=== PATIENT | female | born 1950 | race Caucasian/White ===

== ENCOUNTER 2016-10-10 10:16 | Emergency (ER) | payer BC ==
[2016-10-10] MEDS ORDERED: NORMAL SALINE 1000 ML 1,000 ML IV ONE (10:38)
--- NOTE | 2016-10-10 10:42 | ER Document Report ---
ED Medical Screen (RME) - General Chief Complaint: Nausea/Vomiting Stated Complaint: FLU LIKE SYMPTOMS Time Seen by Provider: 10/10/16 10:37 Mode of Arrival: Ambulatory Information source: Patient TRAVEL OUTSIDE OF THE [place] IN LAST 30 DAYS: No - HPI Onset: Other - 2 DAYS Onset/Duration: Sudden Quality of pain: Achy Associated Symptoms: Chills, Fever, Headache - INTERMITTENT, Nausea, Sweating, Vomiting. denies: Cough (productive), Cough (nonproductive) Exacerbated by: Denies Relieved by: Denies Similar symptoms previously: Yes - NOT RECENT Recently seen / treated by doctor: No - Related Data Smoking: Non-smoker Frequency of alcohol use: None Drug Abuse: None Allergies/Adverse Reactions: codeine [Codeine] Allergy (Verified 10/10/16 10:25) head ache, vomitting, rash niacin [From Niaspan] Allergy (Verified 10/10/16 10:25) feels like on fire nitroglycerin [Nitroglycerin] Adverse Reaction (Verified 10/10/16 10:25) headache Past Medical History - Past Medical History Cardiac Medical History: Reports: Hx Hypertension Denies: Hx Coronary Artery Disease, Hx Heart Attack Pulmonary Medical History: Reports: Hx Pneumonia - yearly, Last 2011 Denies: Hx Asthma, Hx Bronchitis, Hx COPD Neurological Medical History: Denies: Hx Cerebrovascular Accident, Hx Seizures Renal/ Medical History: Denies: Hx Peritoneal Dialysis GI Medical History: Denies: Hx Hepatitis, Hx Hiatal Hernia, Hx Ulcer Musculoskeltal Medical History: Reports Hx Arthritis - Osteo knees, Lt hip, back Infectious Medical History: Denies: Hx Hepatitis Past Surgical History: Reports: Hx Hysterectomy. Denies: Hx Mastectomy, Hx Open Heart Surgery, Hx Pacemaker - Immunizations Hx Diphtheria, Pertussis, Tetanus Vaccination: - unknown Review of Systems - Review of Systems Constitutional: See HPI EENT: No symptoms reported Cardiovascular: No symptoms reported Respiratory: No symptoms reported Gastrointestinal: See HPI Physical Exam - Vital signs Vitals: Temp Pulse Resp BP Pulse Ox 98.7 F 81 20 129/69 H 96 10/10/16 10:26 10/10/16 10:26 10/10/16 10:26 10/10/16 10:26 10/10/16 10:26 Interpretation: Normal Course - Vital Signs Vital signs: Temp Pulse Resp BP Pulse Ox 98.7 F 81 20 129/69 H 96 10/10/16 10:26 10/10/16 10:26 10/10/16 10:26 10/10/16 10:26 10/10/16 10:26
[2016-10-10] MEDS ORDERED: ONDANSETRON HCL INJ/PF 4 MG/2 ML SDV IV ONE (11:11)
[2016-10-10] MEDS ORDERED: HYDROMORPHONE HCL INJ/PF 2 MG/ML AMPULE IV ONE (11:11)
[2016-10-10 11:13] LABS: ABSOLUTE LYMPHOCYTES (AUTO) 0.5 10^3/uL (0.5-4.7); ABSOLUTE MONOCYTES (AUTO) 0.6 10^3/uL (0.1-1.4); ABSOLUTE NEUT (AUTO) 8.1 10^3/uL (1.7-8.2); BASOPHILS % (AUTO) 0.3 % (0-2); HEMOGLOBIN 12.5 g/dL (12.0-15.5); HGB HCT DIFFERENCE 1.5; LYMPHOCYTES % (AUTO) 5.1 % (13-45); MEAN CORPUSCULAR HEMOGLOBIN 28.9 pg (27.0-33.4); MEAN CORPUSCULAR HGB CONC 34.7 g/dL (32.0-36.0); MEAN CORPUSCULAR VOLUME 84 fl (80-97); MONOCYTES % (AUTO) 6.5 % (3-13); RED BLOOD COUNT 4.32 10^6/uL (3.72-5.28); RED CELL DISTRIBUTION WIDTH 15.3 % (11.5-14.0); SEGMENTED NEUTROPHILS % (AUTO) 88.1 % (42-78); WHITE BLOOD COUNT 9.2 10^3/uL (4.0-10.5)
--- NOTE | 2016-10-10 11:19 | ER Document Report ---
ED General - General Mode of Arrival: Ambulatory Information source: Patient TRAVEL OUTSIDE OF THE [place] IN LAST 30 DAYS: No - HPI Onset: Other - Refer to HPI notes Associated symptoms: Body/muscle aches, Chills, Fever, Headache, Nausea, Vomiting, Sweating. denies: Nonproductive cough, Productive cough, Diarrhea <JOHN FONTAINE - Last Filed: 10/10/16 11:25> <NAHUM BRUNSON - Last Filed: 10/10/16 16:17> - General Chief Complaint: Nausea/Vomiting Stated Complaint: FLU LIKE SYMPTOMS Time Seen by Provider: 10/10/16 10:37 Notes: Patient is a 66-year-old female presenting to the emergency department for multiple symptoms that were onset Tuesday night. Patient states Tuesday evening she had chills, fever and headache along with generalized body aches including her neck and back. On Tuesday evening patient has had intermittent episodes of nausea, vomiting, and diaphoresis. Patient has not been able to keep any food or liquids down. Patient last urinated 17:00 last night. Patient is a type II diabetic and states her blood glucose levels have been in the 300s. Patient also has a history of hypertension, cholecystectomy, and hysterectomy. (JOHN FONTAINE) - Related Data Allergies/Adverse Reactions: codeine [Codeine] Allergy (Verified 10/10/16 10:25) head ache, vomitting, rash niacin [From Niaspan] Allergy (Verified 10/10/16 10:25) feels like on fire nitroglycerin [Nitroglycerin] Adverse Reaction (Verified 10/10/16 10:25) headache Past Medical History - General Information source: Patient - Social History Smoking Status: Never Smoker Cigarette use (# per day): No Chew tobacco use (# tins/day): No Frequency of alcohol use: None Drug Abuse: None Family History: None Patient has suicidal ideation: No Patient has homicidal ideation: No - Past Medical History Cardiac Medical History: Reports: Hx Hypertension Pulmonary Medical History: Reports: Hx Pneumonia - yearly, Last 2011 Endocrine Medical History: Reports: Hx Diabetes Mellitus Type 2 Musculoskeltal Medical History: Reports Hx Arthritis - Osteo knees, Lt hip, back Past Surgical History: Reports: Hx Cholecystectomy - 2013, Hx Hysterectomy - 2011 - Immunizations Hx Diphtheria, Pertussis, Tetanus Vaccination: - unknown Hx Pneumococcal Vaccination: 12/27/11 <KACIEYUDY GARZAINE - Last Filed: 10/10/16 11:25> Review of Systems - Review of Systems Constitutional: See HPI, Chills, Diaphoresis, Fever, Malaise EENT: No symptoms reported Cardiovascular: No symptoms reported Respiratory: No symptoms reported. denies: Cough Gastrointestinal: See HPI, Nausea, Vomiting. denies: Diarrhea Genitourinary: No symptoms reported Female Genitourinary: No symptoms reported Musculoskeletal: See HPI, Back pain, Joint pain, Neck pain Skin: No symptoms reported Hematologic/Lymphatic: No symptoms reported Neurological/Psychological: See HPI, Headaches -: Yes All other systems reviewed and negative <ZHENJOHN - Last Filed: 10/10/16 11:25> Physical Exam - Vital signs Interpretation: Normal <JOHN FONTAINE - Last Filed: 10/10/16 11:25> <NAHUM BRUNSON - Last Filed: 10/10/16 16:17> - Vital signs Vitals: Temp Pulse Resp BP Pulse Ox 98.7 F 81 20 129/69 H 96 10/10/16 10:26 10/10/16 10:26 10/10/16 10:26 10/10/16 10:26 10/10/16 10:26 - Notes Notes: GENERAL: Alert, interacts well, diaphoretic. Mild distress. HEAD: Normocephalic, atraumatic. EYES: Appear normal. Pupils equal, round, and reactive to light. ENT: Thick saliva present, tongue midline, oropharynx appears normal with no erythema. NECK: Full range of motion. Supple. Trachea midline. Posterior cervical muscle and nuchal ridge tenderness with palpation. LUNGS: Clear to auscultation bilaterally, no wheezes, rales, or rhonchi. No respiratory distress. HEART: Regular rate and rhythm. No murmurs, gallops, or rubs. ABDOMEN: Morbidly obese. Soft, non-tender. Non-distended. Normal bowel sounds. EXTREMITIES: Moves all 4 extremities spontaneously. Normal strength. No edema. NEUROLOGICAL: Alert and oriented x3. Normal speech. No focal neurological deficits. GSC 15. PSYCH: Normal affect, normal mood. SKIN: Clammy and diaphoretic. (JOHN FONTAINE) Course - Laboratory Result Diagrams: 10/10/16 10:45 10/10/16 10:45 <JOHN FONTAINE - Last Filed: 10/10/16 11:25> - Laboratory Result Diagrams: 10/10/16 10:45 10/10/16 10:45 <NAHUM BRUNSON - Last Filed: 10/10/16 16:17> - Re-evaluation Re-evalutation: 10/10/16 16:14 The patient was given Tylenol and some Toradol for her achiness and at this time feels much better and does feel comfortable going home. (NAHUM BRUNSON) - Vital Signs Vital signs: Temp Pulse Resp BP Pulse Ox 99.5 F 77 16 106/49 L 91 L 10/10/16 14:16 10/10/16 14:16 10/10/16 14:16 10/10/16 14:16 10/10/16 14:16 - Laboratory Laboratory results interpreted by me: 10/10/16 10/10/16 10/10/16 10:45 10:45 10:45 RDW 15.3 H Seg Neutrophils % 88.1 H Lymphocytes % 5.1 L Sodium 129.5 L Chloride 88 L Glucose 275 H POC Glucose Hemoglobin A1c % 7.2 H AST 49 H Urine Protein Urine Glucose (UA) 10/10/16 10/10/16 11:30 14:08 RDW Seg Neutrophils % Lymphocytes % Sodium Chloride Glucose POC Glucose 272 H Hemoglobin A1c % AST Urine Protein 100 H Urine Glucose (UA) 50 H Discharge <JOHN FONTAINE - Last Filed: 10/10/16 11:25> <NAHUM BRUNSON - Last Filed: 10/10/16 16:17> - Discharge Clinical Impression: Myalgia, Chills, Hyponatremia Nausea and vomiting Qualifiers: Vomiting type: unspecified Vomiting Intractability: non-intractable Qualified Code(s): R11.2 - Nausea with vomiting, unspecified Hyperglycemia due to type 2 diabetes mellitus Qualifiers: Diabetes mellitus nursing home insulin use: without termite treater helper use Qualified Code(s ): E11.65 - Type 2 diabetes mellitus with hyperglycemia Disposition: HOME, SELF-CARE Additional Instructions: Viral Syndrome: The physician has diagnosed a viral infection. Viruses not only cause "colds," but can cause many different symptoms including generalized aching, fever, headache, cough, diarrhea, nausea, vomiting, and fatigue. The treatment, for the most part, is simply relief of symptoms. This means that antibiotics are usually not given. Rest, fluids, pain medications and, occasionally, medication for the specific symptoms that are most bothersome will be prescribed. Use good handwashing to avoid passing the virus to others. Shared toys should be cleaned with disinfectant. Clean the toilets, sinks, and counter surfaces in bathrooms. Launder clothing in hot water. Contact the physician if you develop any new or unusual symptoms such as severe headache, stiff neck, high fever, chest pain, productive cough, or shortness of breath. You should be rechecked if you don't see marked improvement within seven to 10 days. Your symptoms are most likely from a viral syndrome causing the nausea, vomiting , generalized achiness, fever and chills. Your serum sodium level was a little low. You should increase sodium in your diet for the next few days. Take Tylenol every 4 hours for fever and chills. Drink plenty of fluids. Follow-up with your primary care provider tomorrow for recheck and to discuss medication changes to get better control of your diabetes. RETURN TO THE EMERGENCY ROOM IF ANY NEW OR WORSENING SYMPTOMS. Referrals: VALENTIN DAVIES MD [Primary Care Provider] - Follow up as needed Scribe Attestation: 10/10/16 16:17 I personally performed the services described in the documentation, reviewed and edited the documentation which was dictated to the scribe in my presence, and it accurately records my words and actions. (NAHUM BRUNSON) Scribe Documentation - Scribe Written by Gricelda:: Gricelda Tracy, 10/10/2016 11:11 acting as scribe for :: Vikki <JOHN FONTAINE - Last Filed: 10/10/16 11:25>
[2016-10-10 11:35] LABS: ALANINE AMINOTRANSFERASE 44 U/L (9-52); ALBUMIN 4.1 g/dL (3.5-5.0); ALKALINE PHOSPHATASE 77 U/L (38-126); ANION GAP 17 (5-19); ASPARTATE AMINO TRANSFERASE 49 U/L (14-36); BILIRUBIN,DIRECT 0.4 mg/dL (0.0-0.4); BILIRUBIN,TOTAL 1.1 mg/dL (0.2-1.3); BLOOD UREA NITROGEN 15 mg/dL (7-20); CALCIUM 8.8 mg/dL (8.4-10.2); CARBON DIOXIDE 25 mmol/L (22-30); CHLORIDE 88 mmol/L (98-107); CREATININE RESULT 0.89 mg/dL (0.52-1.25); GLUCOSE 275 mg/dL (75-110); LIPASE 64.1 U/L (23-300); POTASSIUM 3.7 mmol/L (3.6-5.0); SODIUM 129.5 mmol/L (137-145); TOTAL PROTEIN 7.1 g/dL (6.3-8.2)
[2016-10-10] MEDS ORDERED: RINGERS SOLUTION,LACTATED 1,000 ML IV ONE (12:28)
[2016-10-10 14:27] LABS: APPEARANCE,URINE SLIGHTLY-CLOUDY; BILIRUBIN,URINE NEGATIVE (NEGATIVE); GLUCOSE, URINE 50 mg/dL (NEGATIVE); KETONES,URINE NEGATIVE (NEGATIVE); LEUKOCYTE ESTERASE,URINE NEGATIVE (NEGATIVE); NITRITE,URINE NEGATIVE (NEGATIVE); PROTEIN,URINE 100 mg/dL (NEGATIVE); URINE SPECIFIC GRAVITY 1.029; UROBILINOGEN,URINE NEGATIVE mg/dL (<2.0)
[2016-10-10] MEDS ORDERED: KETOROLAC TROMETHAMINE INJ/PF 30 MG/1 ML SDV IV ONE (14:49)
[2016-10-10] MEDS ORDERED: ACETAMINOPHEN 325 MG TABLET PO ONE (14:49)
[2016-10-10] MEDS ORDERED: INSULIN REG, HUMAN 100 UNIT/ML 3 ML VIAL (PYX) IV ONE (14:50)
[2016-10-10 16:30] VITALS: BP 101/60
== END 2016-10-10 16:31 | disposition home or self-care (01) ==
LOC: ER 10:16
DX: E11.65 Type 2 diabetes mellitus with hyperglycemia (principal); R11.2 Nausea with vomiting, unspecified; R61 Generalized hyperhidrosis; I10 Essential (primary) hypertension; M79.1 Myalgia; R68.83 Chills (without fever); E87.1 Hypo-osmolality and hyponatremia; B34.9 Viral infection, unspecified
CPT/HCPCS: 99284; 96361; 96374; 96375; 36415; 82962; 83690; 85025; 80053; 81001; 83036; J1885; J1170; J1815; J2405; J7030; J7120

== ENCOUNTER 2017-08-04 22:17 | Emergency (ER) | payer MEDICARE, BC ==
[2017-08-04] MEDS ORDERED: FUROSEMIDE INJ/PF 20 MG/2 ML SDV IV ONE (22:23)
--- NOTE | 2017-08-04 22:27 | ER Document Report ---
ED General - General Stated Complaint: DIFFICULTY BREATHING Time Seen by Provider: 08/04/17 22:23 Notes: Patient is 67-year-old female presents with complaint of difficulty breathing. She says over last 24 hours no she started acutely some fluid. She said this only tonight start feel very short of breath. When paramedics arrived her oxygenation was 83% on room air. The immediately placed on CPAP. They did not give her nitro because she has an allergy to nitro. Patient says her allergies that when she is received much in the past to cause severe headache and also calls her blood pressure to go up. She was also given aspirin. She does have previous history of CHF. She she does not have a history of NE. No history of cardiac stenting. Tonight she did have some chest pain associated with shortness of breath. She does in her upper chest, down her left arm a,d across her back. She says that pain is almost completely gone at this point except for just a small amount of pain behind her left shoulder blade. No other complaints at this time. No recent fevers. TRAVEL OUTSIDE OF THE [place] IN LAST 30 DAYS: No - Related Data Allergies/Adverse Reactions: codeine [Codeine] Allergy (Verified 10/10/16 10:25) head ache, vomitting, rash niacin [From Niaspan] Allergy (Verified 10/10/16 10:25) feels like on fire nitroglycerin [Nitroglycerin] Adverse Reaction (Verified 10/10/16 10:25) headache Past Medical History - Social History Smoking Status: Never Smoker Frequency of alcohol use: None Drug Abuse: None Family History: None - Past Medical History Cardiac Medical History: Reports: Hx Hypertension Denies: Hx Coronary Artery Disease, Hx Heart Attack Pulmonary Medical History: Reports: Hx Pneumonia - yearly, Last 2011 Denies: Hx Asthma, Hx Bronchitis, Hx COPD Neurological Medical History: Denies: Hx Cerebrovascular Accident, Hx Seizures Endocrine Medical History: Reports: Hx Diabetes Mellitus Type 2 Renal/ Medical History: Denies: Hx Peritoneal Dialysis GI Medical History: Denies: Hx Hepatitis, Hx Hiatal Hernia, Hx Ulcer Musculoskeltal Medical History: Reports Hx Arthritis - Osteo knees, Lt hip, back Infectious Medical History: Denies: Hx Hepatitis Past Surgical History: Reports: Hx Cholecystectomy - 2013, Hx Hysterectomy - 2011. Denies: Hx Mastectomy, Hx Open Heart Surgery, Hx Pacemaker - Immunizations Hx Diphtheria, Pertussis, Tetanus Vaccination: - unknown Hx Pneumococcal Vaccination: 12/27/11 Review of Systems - Review of Systems Notes: My Normal Review Basic REVIEW OF SYSTEMS: CONSTITUTIONAL : Denies fever, chills, or sweats. Denies recent illness. CARDIOVASCULAR: Had chest pain. RESPIRATORY: Difficulty breathing GASTROINTESTINAL: Denies abdominal pain. Denies nausea, vomiting, or diarrhea. Denies constipation. Last BM: GENITOURINARY: Denies difficulty urinating, painful urination, burning, frequency, or blood in urine. MUSCULOSKELETAL: Some leg edema. SKIN: Denies rash or skin lesions. NEUROLOGICAL: Denies altered mental status or loss of consciousness. Denies headache. Denies weakness or paralysis or loss of use of either side. Denies problems with gait or speech. Denies sensory or motor loss. ALL OTHER SYSTEMS REVIEWED AND NEGATIVE. Physical Exam - Vital signs Vitals: Pulse Ox 100 08/04/17 22:21 - Notes Notes: General Appearance: Well nourished, alert, cooperative, mild to moderate acute distress, no obvious discomfort. Speaking in 5 word sentences. Vitals: reviewed, See vital signs table. Head: no swelling or tenderness to the head Eyes: PERRL, EOMI, Conjuctiva clear Mouth: No decreasd moisture Throat: No tonsillar inflammation, No airway obstruction, No lymphadenopathy Neck: Supple, no neck tenderness, No thyromegaly Lungs: No wheezing, bibasilar rales, No rhonci, No accessory muscle use, good air exchange bilaterally. Heart: Normal rate, Regular rythm, No murmur, no rub Abdomen: Normal BS, soft, No rigidity, No abdominal tenderness, No guarding, no rebound, no abdominal masses, no organomegaly Extremities: strength 5/5 in all extremities, good pulses in all extremities, no swelling or tenderness in the extremities, 1+ edema. Skin: warm, dry, appropriate color, no rash Neuro: speech clear, oriented x 3, normal affect, responds appropriately to questions. Course - Re-evaluation Re-evalutation: 08/04/17 23:52 Patient continues a that she feels much improved. She still says that she has just very slight pain behind her left shoulder blade but all her anterior chest pain in the remainder of her other back pain is completely resolved. Her troponin did come back in the indeterminate range. I am ordering repeat EKG. Talk to patient length. She is followed by carrier washer at [facility]. I will call and speak with [facility]. I will see if they want to take patient's transfer if they want to repeat troponin first before except the patient as possible NSTEMI. Dictation of this chart was performed using voice recognition software; therefore, there may be some unintended grammatical errors. 08/05/17 00:01 I did speak with Dr. Powers, hospitalist at [facility], who agrees to accept the patient. He does still request repeat troponin, but says regardless of the result of the repeat troponin he is willing to take her. I think this is appropriate being that the patient does have EKG changes and already has an indeterminate troponin. I will give her a dose of Lovenox. I did discuss this with the patient and she is completely agreeable to transfer. She continues to state that she feels much improved and feels well and just has the very slight pain behind her left shoulder without any continuous anterior chest pain. Denies any recent bleeding issues. Dictation of this chart was performed using voice recognition software; therefore, there may be some unintended grammatical errors. 08/05/17 01:28 Dr. Powers called back and asked me to give her 180 mg of Brilinta as well as 80 mg of Lipitor. This has been ordered. I am awaiting her repeat troponin to come back. 08/05/17 02:38 Transport team is arrived. Patient's troponin is up trending. I have just reevaluate the patient again. Patient says that she is completely pain-free. The very small amount of shoulder pain that she had earlier is completely gone. She looks and feels well. I informed her that her troponin is up trending and that we are sending to facility that does have intervention cardiology for evaluation. Patient understands this and appreciative of this. She has received Brilinta, Lovenox, aspirin, and a statin. Patient has no further concerns at this time and is stable for transfer. I will call Dr. Powers and make him aware of the up trending troponin and the fact the patient is on her way there. Dictation of this chart was performed using voice recognition software; therefore, there may be some unintended grammatical errors. - Vital Signs Vital signs: Temp Pulse Resp BP Pulse Ox 98.1 F 19 115/64 96 08/04/17 22:25 08/05/17 01:32 08/05/17 01:32 08/05/17 01:32 - Laboratory Result Diagrams: 08/04/17 22:25 08/04/17 22:25 Laboratory results interpreted by me: 08/04/17 08/04/17 08/04/17 22:25 22:25 22:25 WBC 12.3 H RDW 15.9 H Absolute Neutrophils 9.6 H Glucose 249 H NT-Pro-B Natriuret Pep 1420 H Urine Protein Urine Glucose (UA) Urine Blood 08/04/17 22:25 WBC RDW Absolute Neutrophils Glucose NT-Pro-B Natriuret Pep Urine Protein 30 H Urine Glucose (UA) >=500 H Urine Blood MODERATE H - EKG Interpretation by Me Additional EKG results interpreted by me: 08/04/17 22:40 EKG is reviewed and interpreted by me. EKG shows normal sinus rhythm with a rate of 78 bpm. Patient does have very minimal ST segment elevation in leads aVR and V1. She also has about [address] segment depression in leads V4, V5, V6 and lead I. These changes are new in comparison to patient's old EKG from June 20, 2013. This findings can be seen with LVH. They can also be seen with left main disease. Currently the patient is chest pain-free and is currently actually looking very well since being started on BiPAP. I therefore will not activate a STEMI based on this EKG as does not quite meet criteria for STEMI at this time and she is chest pain-free. I will order the troponin and closely monitor her in the meantime. Discharge - Discharge Clinical Impression: Chest pain Qualifiers: Chest pain type: unspecified Qualified Code(s): R07.9 - Chest pain, unspecified Condition: Stable Disposition: [facility]
[2017-08-04 22:35] LABS: ABSOLUTE BASOPHILS # (AUTO) 0.1 10^3/uL (0.0-0.2); ABSOLUTE EOSINOPHILS # (AUTO) 0.2 10^3/uL (0.0-0.6); ABSOLUTE LYMPHOCYTES (AUTO) 2.1 10^3/uL (0.5-4.7); ABSOLUTE MONOCYTES (AUTO) 0.4 10^3/uL (0.1-1.4); ABSOLUTE NEUT (AUTO) 9.6 10^3/uL (1.7-8.2); BASOPHILS % (AUTO) 0.7 % (0-2); EOSINOPHILS % (AUTO) 1.2 % (0-6); HEMATOCRIT 36.2 % (36.0-47.0); HEMOGLOBIN 12.1 g/dL (12.0-15.5); MEAN CORPUSCULAR HEMOGLOBIN 28.4 pg (27.0-33.4); MEAN CORPUSCULAR HGB CONC 33.5 g/dL (32.0-36.0); MEAN CORPUSCULAR VOLUME 85 fl (80-97); MONOCYTES % (AUTO) 3.3 % (3-13); PLATELET COUNT 246 10^3/uL (150-450); RED BLOOD COUNT 4.27 10^6/uL (3.72-5.28); RED CELL DISTRIBUTION WIDTH 15.9 % (11.5-14.0); SEGMENTED NEUTROPHILS % (AUTO) 77.8 % (42-78); TOTAL CELLS COUNTED % (AUTO) 100 %; WHITE BLOOD COUNT 12.3 10^3/uL (4.0-10.5)
[2017-08-04 22:55] LABS: ALANINE AMINOTRANSFERASE 24 U/L (9-52); ALBUMIN 3.9 g/dL (3.5-5.0); ALKALINE PHOSPHATASE 83 U/L (38-126); ANION GAP 15 (5-19); ASPARTATE AMINO TRANSFERASE 17 U/L (14-36); BILIRUBIN,DIRECT 0.3 mg/dL (0.0-0.4); BILIRUBIN,TOTAL 0.6 mg/dL (0.2-1.3); BLOOD UREA NITROGEN 15 mg/dL (7-20); CALCIUM 9.5 mg/dL (8.4-10.2); CARBON DIOXIDE 25 mmol/L (22-30); CHLORIDE 98 mmol/L (98-107); GLUCOSE 249 mg/dL (75-110); POTASSIUM 3.9 mmol/L (3.6-5.0); SODIUM 138.4 mmol/L (137-145); TOTAL PROTEIN 6.7 g/dL (6.3-8.2)
[2017-08-04 23:10] LABS: TROPONIN I 0.095 ng/mL
--- NOTE | 2017-08-04 23:23 | RADIOLOGY REPORT (SQ) ---
EXAM DESCRIPTION: XR CHEST 1 VIEW CLINICAL HISTORY: 67 years Female, dyspnea COMPARISON: 3.31.11. NUMBER OF VIEWS/TECHNIQUE: 1/AP FINDINGS: Adequate lung volume, moderate interstitial markings, clear parenchyma, normal cardiac silhouette, and intact bony thorax. IMPRESSION: Moderate interstitial markings. Differential diagnosis includes pulmonary edema, atypical pneumonitis, and chronic interstitial lung disease.
[2017-08-04] MEDS ORDERED: ENOXAPARIN SODIUM INJ 150 MG/1 ML DISP.SYRIN SUBCUT SCH (23:45)
[2017-08-05 00:46] LABS: APPEARANCE,URINE CLEAR; BILIRUBIN,URINE NEGATIVE (NEGATIVE); COLOR,URINE STRAW; GLUCOSE, URINE >=500 mg/dL (NEGATIVE); KETONES,URINE NEGATIVE (NEGATIVE); LEUKOCYTE ESTERASE,URINE NEGATIVE (NEGATIVE); NITRITE,URINE NEGATIVE (NEGATIVE); PROTEIN,URINE 30 mg/dL (NEGATIVE); URINE SPECIFIC GRAVITY 1.007; UROBILINOGEN,URINE NEGATIVE mg/dL (<2.0)
[2017-08-05] MEDS ORDERED: TICAGRELOR 90 MG TABLET PO ONE (01:26)
[2017-08-05] MEDS ORDERED: ATORVASTATIN CALCIUM 80 MG TABLET PO ONE (01:27)
[2017-08-05 01:37] VITALS: BP 115/64
[2017-08-05] MEDS ORDERED: TICAGRELOR 90 MG TABLET ONE ×2 (01:54→02:10)
--- NOTE | 2017-08-05 07:58 | EKG REPORT ---
SEVERITY:- ABNORMAL ECG - SINUS RHYTHM MULTIPLE VENTRICULAR PREMATURE COMPLEXES PROBABLE LEFT ATRIAL ABNORMALITY LVH WITH IVCD AND SECONDARY REPOL ABNRM : Confirmed by: Claude Alfaro MD 05-Aug-2017 07:57:53
--- NOTE | 2017-08-05 07:58 | EKG REPORT ---
SEVERITY:- ABNORMAL ECG - SINUS RHYTHM ATRIAL PREMATURE COMPLEX LVH WITH IVCD AND SECONDARY REPOL ABNRM : Confirmed by: Claude Alfaro MD 05-Aug-2017 07:57:26
== END 2017-08-05 02:45 | disposition short-term general hospital (02) ==
LOC: ER 22:17
DX: R07.9 Chest pain, unspecified (principal); R06.00 Dyspnea, unspecified; I10 Essential (primary) hypertension; E11.9 Type 2 diabetes mellitus without complications; Z88.6 Allergy status to analgesic agent; Z90.710 Acquired absence of both cervix and uterus
CPT/HCPCS: 93005; 99285; 96372; 96374; 36415; 85025; 80053; 81001; 84484; 83880; 71045; 93010; 94660 ×2; J3490; J1940; A9270 ×2

== ENCOUNTER → 2019-08-02 | Outpatient (CLI) | payer MEDICARE, BC ==
--- NOTE | 2019-08-02 10:26 | RADIOLOGY REPORT (SQ) ---
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 TECHNIQUE: Multiplanar imaging includes noncontrasted T1, T2, FLAIR, and Diffusion with ADC map seq uences. Contrast enhanced T1 images. Images stored on PACS. CONTRAST TYPE AND DOSE: 20 mL Prohance. RENAL FUNCTION: Not indicated. ACR Type II contrast agent associated with few, if any, unconfounded cases of NSF LIMITATIONS: None. FINDINGS: ANATOMY: No anomalies. Normal vascular flow voids. Pituitary fossa normal. CSF SPACES: Normal size and contour. No hemorrhage. CEREBRUM: Old left posterior parietal infarct. A few high-signal intensity lesions scattered through out the white matter on FLAIR imaging with distribution suggesting chronic microvascular ischemic wilmer nge. Sulci and gyri normal in size and contour. No evidence of hemorrhage, mass or extraaxial fluid c ollection. No enhancing lesions. POSTERIOR FOSSA: No signal alteration. No hemorrhage. No edema, masses or mass effect. Internal audit ory canals, cerebello-pontine angles, mastoids normal. DIFFUSION: Negative for acute or subacute infarction. ORBITS: No masses. Globes normal. PARANASAL SINUSES: No fluid levels. Mucosa normal. OTHER: No other significant finding. 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 Chronic ischemic changes. EVIDENCE OF ACUTE STROKE: NO. TECHNICAL DOCUMENTATION: JOB ID: [id number] 2010 [employer]- All Rights Reserved Reading location - IP/workstation name: [email or web address]
--- NOTE | 2019-08-02 13:29 | RADIOLOGY REPORT (SQ) ---
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 TECHNIQUE: Grayscale ultrasound, Doppler velocity and spectra, and color Doppler images acquired of the extra-cranial carotid and vertebral arteries. Images stored on PACS. LIMITATIONS: None. FINDINGS: RIGHT CAROTID CCA Velocities: Within normal limits. ICA Velocities Peak systolic 50 cm/s. End diastolic 12 cm /s. Proximal ICA/CCA peak systolic ratio 1.0. Mild soft plaque. LEFT CAROTID CCA Velocities: Within normal limits. ICA Velocities Peak systolic 48 cm/s. End diastolic 14 cm/s. Proximal ICA/CCA peak systolic ratio 0.9. Mild soft plaque. VERTEBRAL ARTERIES: Antegrade flow. Normal waveforms. SUBCLAVIAN ARTERIES: No finding. OTHER: No other significant finding. IMPRESSION: NO HEMODYNAMICALLY SIGNIFICANT STENOSIS. COMMENT: Quality ID #[id number]: Velocity criteria are extrapolated from the diameter data as defined by t he Society of Radiologists in Ultrasound Consensus Conference. Radiology 2003: 229; 340-346. TECHNICAL DOCUMENTATION: JOB ID: [id number] 2010 [employer]- All Rights Reserved Reading location - IP/workstation name: [email or web address]
== END ==
LOC: SP 07:45
PROVIDERS: ATTEND Ophthalmology
DX: H53.2 Diplopia (principal); H50.21 Vertical strabismus, right eye; H34.8322 Tributary (branch) retinal vein occlusion, left eye, stable; Z86.73 Personal history of transient ischemic attack (TIA), and cerebral infarction without residual deficits
CPT/HCPCS: 82565; 93880; 70553; A9576